=== PATIENT | male | born 1950 | race Caucasian/White ===

== ENCOUNTER → 2017-12-05 07:54 | Outpatient (CLI) | payer OTHER, SELFPAY ==
[2017-12-05 09:39] LABS: AST(SGOT) 28 U/L (15-37); Alanine Aminotransfer ALT/SGPT 36 U/L (16-61); Alkaline Phosphatase 82 U/L (45-117); Bilirubin, Direct 0.15 mg/dL (0.00-0.30); Cholesterol 166 mg/dL (200); Globulin 3.6 g/dL (2.2-4.2); High Density Lipoprotein 38 mg/dL; Protein, Total 7.6 g/dL (6.4-8.2); Triglycerides 167 mg/dL; Very Low Density Lipoprotein 33 mg/dL (5-40)
== END ==
PROVIDERS: Physician Assistant Medical; Family Provider Family Medicine; PCP Family Medicine; Visit Provider Internal Medicine Cardiovascular Disease
DX: E78.5 Hyperlipidemia, unspecified (principal); Z79.899 Other long term (current) drug therapy
CPT/HCPCS: 36415; 80061; 80076

== ENCOUNTER 2021-06-05 06:00 | Outpatient (CLI) | payer MEDICARE, SELFPAY ==
[2021-06-05 07:35] LABS: AST(SGOT) 22 U/L (15-37); Alanine Aminotransfer ALT/SGPT 26 U/L (16-61); Albumin, Serum 3.9 g/dL (3.2-5.0); Alkaline Phosphatase 116 U/L (45-117); Bilirubin, Direct 0.16 mg/dL (0.00-0.30); Cholesterol 172 mg/dL (200); Globulin 3.6 g/dL (2.2-4.2); High Density Lipoprotein 42 mg/dL; Protein, Total 7.5 g/dL (6.4-8.2); Triglycerides 111 mg/dL; Very Low Density Lipoprotein 22 mg/dL (5-40)
== END 2021-06-05 23:59 | disposition short-term general hospital (02) ==
LOC: LAB 06:04
PROVIDERS: PCP Family Medicine; Referring Provider Internal Medicine Cardiovascular Disease; Visit Provider Internal Medicine Cardiovascular Disease
DX: E78.5 Hyperlipidemia, unspecified (principal); I10 Essential (primary) hypertension
CPT/HCPCS: 36415; 80061; 80076

== ENCOUNTER 2021-09-01 10:01 | Emergency (ER) | payer MEDICARE, SELFPAY ==
[2021-09-01] VITALS (7 sets, daily range): BP systolic 121–222; BP diastolic 68–101; PULSE 54–75; RESP 11–18; TEMP 36.4; O2SAT 95–98; BMI 33.7
--- NOTE | 2021-09-01 10:11 | EKG12_ITS ---
Test Reason : CP Blood Pressure : / mmHG Vent. Rate : 078 BPM Atrial Rate : 078 BPM P-R Int : 202 ms QRS Dur : 100 ms QT Int : 404 ms P-R-T Axes : 065 000 -12 degrees QTc Int : 460 ms Sinus rhythm with frequent Premature ventricular complexes Consider precordial lead misplacement Consider repeat ECG Confirmed by RENALDO BARRAGAN, CHEKO ([id number]), editor publications MELVIN LAWRENCE ([id number]) on 09/03/2021 10:52:39 AM Referred By: Confirmed By:CHEKO MACARIO MD
--- NOTE | 2021-09-01 10:31 | EDS_ITS ---
HPI History of Present Illness Chief Complaint: Chest Pain Informant: patient Narrative Narrative: Patient is a 71-year-old male presenting with chest pain. Patient states he has had intermittent episodes of pain by his chst and back then radiating down his whole body. Episodes last for 20 to 30 seconds at a time. He has had a total of 3 episodes of sweaty. He states while he was walking any started feel short of breath. He does have a history of a heart attack 12 years ago and then 7 days later had a TIA but states this feels different. Has been compliant with his medications. Denies any aspirin today. With this for started this morning he was driving and had a hot flash with sweaty. 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) TIA (transient ischemic attack) Home Medications aspirin 81 mg tablet,delayed release 81 mg PO QDAY 04/18/17 [History Last Taken 05/17/17] clopidogrel 75 mg tablet 75 mg PO QDAY #90 tab 09/12/19 [Rx Last Taken Unknown] lisinopril 20 mg tablet 20 mg PO QDAY #90 tab 09/12/19 [Rx Last Taken Unknown] metoprolol tartrate 25 mg tablet 25 mg PO BID #180 tab 09/12/19 [Rx Last Taken Unknown] cyanocobalamin (vitamin B-12) 1,000 mcg capsule 1,000 mcg PO DAILY 02/17/21 [History Last Taken Unknown] ferrous sulfate 325 mg (65 mg iron) tablet 325 mg PO DAILY 02/17/21 [History Last Taken Unknown] sertraline 100 mg tablet 100 mg PO DAILY 02/17/21 [History Last Taken Unknown] atorvastatin [Lipitor] 80 mg PO DAILY 09/01/21 [History Last Taken Unknown] Allergy/AdvReac Type Severity Reaction Status Date / Time No Known Allergies Allergy Verified 09/01/21 10:05 Family History Mother , Age 78, of cancer CAD (coronary artery disease) Cancer Father , Age 59 from [place] CAD (coronary artery disease) age 58 from [place] Myocardial infarction, Onset Age: 59 Sudden cardiac Brother CAD (coronary artery disease) Myocardial infarction, Onset Age: 39 Surgical History H/O right inguinal hernia repair (2017) History of cardiac catheterization (05/18/17) History of coronary artery stent placement History of open reduction and internal fixation (ORIF) procedure History of umbilical hernia repair (2015) Social History Smoking Status: Never smoker alcohol intake: current alcohol intake frequency: holidays/special occasions only ROS ROS ED Constitutional Constitutional ED: Reports sweats; Denies chills or fever(s) Eyes Eyes: Denies blurry vision or change in vision ENT ENT ED: Denies rhinorrhea Cardiovascular Cardiovascular: Reports as per HPI and chest pain Respiratory/Chest Respiratory/Chest: Reports dyspnea; Denies cough Gastrointestinal Gastrointestinal: Reports nausea; Denies abdominal pain or vomiting Genitourinary Genitourinary ED: Denies dysuria Musculoskeletal Musculoskeletal: Denies arthralgias, back pain or myalgias Integumentary Denies rash Neurologic Neurologic: Denies headache(s) or weakness Psychiatric Psychiatric: Denies depression EXAM Physical Exam Const Vital Signs: 09/01/21 10:02 09/01/21 10:06 09/01/21 10:33 Temperature 97.6 F L Temperature Source Temporal Pulse Rate 75 63 Respiratory Rate 16 Respiratory Effort Normal Respiratory Pattern Normal Blood Pressure 222/101 H 199/95 H Blood Pressure Mean 141 Pulse Ox 97 Oxygen Delivery Method Room Air 09/01/21 10:37 09/01/21 11:29 09/01/21 12:00 Temperature Temperature Source Pulse Rate 61 61 Respiratory Rate 18 16 Respiratory Effort Respiratory Pattern Blood Pressure 171/86 H 121/68 H Blood Pressure Mean 114 85 Pulse Ox 97 98 95 Oxygen Delivery Method Room Air Room Air Room Air 09/01/21 13:06 Temperature Temperature Source Pulse Rate 54 L Respiratory Rate 16 Respiratory Effort Respiratory Pattern Blood Pressure 126/78 H Blood Pressure Mean 94 Pulse Ox 96 Oxygen Delivery Method Room Air Positive well nourished and well developed General Appearance ED: well developed HEENT Reports moist mucous membranes normocephalic and atraumatic Eyes PERRL Neck supple and no JVD Chest Wall inspection of chest normal and palpation of chest normal Resp normal respiratory effort and clear to auscultation bilaterally Effort and Inspection: Negative for respiratory distress Cardio regular rate, regular rhythm and no murmurs Peripheral Pulses: radial pulses present and dorsalis pedis pulses present GI normal to inspection, nondistended, normoactive bowel sounds, soft to palpation and non-distended Back/Spine no CVA tenderness Extremity normal to inspection General Extremety ED: Negative for edema or tenderness General Extremity: Negative for edema Neuro oriented x3 Neuro Narrative: No focal deficits appreciated Sensorium / Orientation: awake and alert Psych mental status grossly normal Skin no rashes or lesions noted Heart Score History: Slightly/Non-Suspicious ECG: Nonspecific Repolarization Age: >/= 65 years Risk Factors: >/= 3 Risk Factors or History of CAD Troponin: </= Normal Limit Score: 5 MDM MDM MDM Narrative Medical decision making narrative: Patient is evaluated for an episode of sweating and discomfort in his chest that he states radiate all the way down to his feet. On initial arrival to the ER he was hypertensive with a blood pressure of 222/101. Patient was given aspirin the emergency room and 1 nitroglycerin. His blood pressure dropped to 126/78 without any further intervention. On repeat evaluation patient states he feels completely back to normal. He does comment that he was drinking coffee and about to have a second couple coffee of the day before this happened. He states he drinks about 4 cups of coffee daily. I am not sure if his caffeine intake is associated with his symptoms today. His EKG did not show any acute ischemic changes and his high since he troponin was normal x2. Work-up is largely unremarkable. Chest x-ray interpreted by myself as well as radiology does not show any acute process. Patient counseled that the exact cause of symptoms is not clear however with normalization of his vital signs and resolution of his symptoms I think he is stable for outpatient follow-up. Will follow up with his primary care doctor as well as his rate and cost analyst. He is agreeable this plan of care. Lab Data Attestation: I reviewed the patient's lab results. Labs: Laboratory Results - last 24 hr 09/01/21 09/01/21 09/01/21 10:35 10:35 10:35 WBC 8.9 RBC 5.42 Hgb 14.6 Hct 47.7 MCV 88.0 MCH 26.9 L MCHC 30.6 L RDW Std Deviation 47.5 H RDW Coeff of Mary Anne 14.6 Plt Count 223 MPV 9.5 Immature Gran % (Auto) 0.300 Neut % (Auto) 67.4 Lymph % (Auto) 22.3 Major % (Auto) 8.1 Eos % (Auto) 1.6 Baso % (Auto) 0.3 Absolute Neuts (auto) 6.0 Absolute Lymphs (auto) 1.99 Nucleated RBC % 0 PT Cancelled INR Cancelled Sodium 138 Potassium 4.2 Chloride 108 H Carbon Dioxide 25.0 Anion Gap 5 BUN 17 Creatinine 1.29 Estim Creat Clear Calc 62.84 Est GFR (MDRD) Af Amer 71 Est GFR (MDRD) Non-Af 59 L BUN/Creatinine Ratio 13.2 Glucose 104 Calcium 9.1 Troponin I High Sens B-Natriuretic Peptide 09/01/21 09/01/21 09/01/21 10:35 10:35 11:25 WBC RBC Hgb Hct MCV MCH MCHC RDW Std Deviation RDW Coeff of Mary Anne Plt Count MPV Immature Gran % (Auto) Neut % (Auto) Lymph % (Auto) Major % (Auto) Eos % (Auto) Baso % (Auto) Absolute Neuts (auto) Absolute Lymphs (auto) Nucleated RBC % PT 12.7 INR 1.0 Sodium Potassium Chloride Carbon Dioxide Anion Gap BUN Creatinine Estim Creat Clear Calc Est GFR (MDRD) Af Amer Est GFR (MDRD) Non-Af BUN/Creatinine Ratio Glucose Calcium Troponin I High Sens 8 B-Natriuretic Peptide 51.8 09/01/21 12:51 WBC RBC Hgb Hct MCV MCH MCHC RDW Std Deviation RDW Coeff of Mary Anne Plt Count MPV Immature Gran % (Auto) Neut % (Auto) Lymph % (Auto) Major % (Auto) Eos % (Auto) Baso % (Auto) Absolute Neuts (auto) Absolute Lymphs (auto) Nucleated RBC % PT INR Sodium Potassium Chloride Carbon Dioxide Anion Gap BUN Creatinine Estim Creat Clear Calc Est GFR (MDRD) Af Amer Est GFR (MDRD) Non-Af BUN/Creatinine Ratio Glucose Calcium Troponin I High Sens 10 B-Natriuretic Peptide Radiography Chest X-Ray - ED: 1 View, Read by ED Physician, Read by Radiologist and No Acute Disease Diagnostic Testing: Clinical Impression(s) from Imaging Studies Chest X-Ray 09/01/21 10:45 IMPRESSION: No radiographic evidence of acute cardiopulmonary disease. at 1053 Reported and signed by: Georgia Lang MD Electronically Signed: Georgia Lang MD at 10:52 EDT Reading Location ID and State: [facility] / [place] Tel , Service support , Rhythm Strip Rhythm Strip: Sinus Rhythm Rate: 78 Ectopy: PVC(s) EKG Initial EKG: Attestation: I personally reviewed and interpreted this EKG as follows: Interpretation: Sinus Rhythm Comments: Sinus rhythm with frequent PVCs at a rate of 78 [place] normal 202 QRS 100 QTC [address] segments T wave inversion in lead III and aVf Discharge Plan Triage Chief Complaint: Chest Pain ED Provider: Minerva Overton Dx/Rx/DC Orders Clinical Impression: Chest pain, History of coronary artery stent placement, Essential hypertension Instructions: ED Chest Pain, Uncertain Cause Prescriptions: No Action aspirin 81 mg tablet,delayed release (DR/EC) 81 mg PO QDAY RF: 0 sertraline [Zoloft] 100 mg tablet 100 mg PO DAILY RF: 0 ferrous sulfate 325 mg (65 mg iron) tablet 325 mg PO DAILY RF: 0 cyanocobalamin (vitamin B-12) 1,000 mcg capsule 1,000 mcg PO DAILY RF: 0 atorvastatin [Lipitor] 40 mg tablet 80 mg PO DAILY RF: 0 metoprolol tartrate 25 mg tablet 25 mg PO BID Qty: 180 RF: 3 lisinopril 20 mg tablet 20 mg PO QDAY Qty: 90 RF: 3 clopidogrel [Plavix] 75 mg tablet 75 mg PO QDAY Qty: 90 RF: 3 Primary Care Provider: Carlos Carranza Referrals: Claudy Jaffe MD [STAFF PHYSICIAN] - Carlos Carranza MD [Primary Care Provider] - Disposition Disposition: Home, Self Care
[2021-09-01] MEDS: Nitroglycerin SL (ED/IMG/CATH) 0.4 MG TABLET SL (10:33)
[2021-09-01] MEDS: Aspirin 81 MG TAB.CHEW 324 MG PO (10:33)
[2021-09-01 10:43] LABS: Absolute Lymphocyte Count 1.99 X10^3/uL (0.83-4.51); Basophil# 0.03 X10^3/uL; Basophil% 0.3 % (0-1); Eosinophil# 0.14 X10^3/uL; Eosinophils% 1.6 % (0-5); Hematocrit 47.7 % (40-54); Hemoglobin 14.6 g/dL (13.0-16.5); Lymphocyte # 1.99 X10^3/ul (0.83-4.51); Lymphocyte % 22.3 % (19-41); Mean Corp Hgb Conc 30.6 g/dL (32-36); Mean Corpuscular Hgb 26.9 pg (27.0-32.0); Mean Platelet Vol. 9.5 fl (6.2-12.0); Monocyte# 0.72 X10^3/uL; Monocyte% 8.1 % (0-10); NRBC Flagged by Analyzer 0 % (0-5); Neutrophil # 6.03 X10^3/uL (2.7-7.7); Neutrophil % 67.4 % (47-70); Platelet Count 223 K/mm3 (150-450); RBC Distribution Width CV 14.6 % (11.6-14.6); RBC Distribution Width SD 47.5 fl (35.1-43.9); Red Blood Count 5.42 M/mm3 (4.6-6.2); White Blood Count 8.9 K/mm3 (4.4-11.0)
--- NOTE | 2021-09-01 10:45 | RAD_ITS ---
HISTORY: chest pain. TECHNIQUE: XR Chest 1 View. # of images incl. paperwork: 1. COMPARISON: 05/13/2017. FINDINGS: CARDIOMEDIASTINAL STRUCTURES: Cardiac silhouette not enlarged. Mediastinal contour unchanged with calcification of the aorta. LUNGS: Mild scarring in the left lung base again seen. PLEURA: No pleural effusion or pneumothorax. OSSEOUS STRUCTURES: Hardware in the proximal right humerus. RAD/Chest 1 View (Portable) IMPRESSION: No radiographic evidence of acute cardiopulmonary disease. at 1053 Reported and signed by: Georgia Lang MD Electronically Signed: Georgia Lang MD at 10:52 EDT ,
[2021-09-01 10:56] LABS: Anion Gap 5 (5-15); BUN 17 mg/dL (7-18); BUN/Creat Ratio 13.2 RATIO (10-20); Calcium,Total 9.1 mg/dL (8.5-10.1); Chloride 108 mmol/L (98-107); Creatinine, Serum 1.29 mg/dL (0.70-1.30); EST Glomerular Filtration Rate 59 mL/min (>60); Est Glom Filt Rate - Afr Amer 71 mL/min (>60); Estimated Creatinine Clearance 62.84 ml/min; Glucose 104 mg/dL (74-106); Potassium 4.2 mmol/L (3.5-5.1); Sodium Level 138 mmol/L (136-145)
[2021-09-01 11:02] LABS: Troponin-I HS (w/2H Reflex) 8 pg/mL (3.0-78.0)
[2021-09-01 11:10] LABS: BNP,B-Type NATRIURETIC PEPTIDE 51.8 pg/mL (0-100)
[2021-09-01 11:52] LABS: Prothrombin Time (Protime)PT. 12.7 SECONDS (11.7-14.9)
[2021-09-01 12:39] LABS: Reflex Troponin-HS? (from REC) Y
[2021-09-01 13:27] LABS: Troponin-I HS 10 pg/mL (3.0-78.0)
== END 2021-09-01 14:19 | disposition home or self-care (01) ==
PROVIDERS: Emergency Provider Emergency Medicine; PCP Family Medicine; Visit Provider Emergency Medicine
DX: R07.9 Chest pain, unspecified (principal); I25.10 Atherosclerotic heart disease of native coronary artery without angina pectoris; I12.9 Hypertensive chronic kidney disease with stage 1 through stage 4 chronic kidney disease, or unspecified chronic kidney disease; N18.9 Chronic kidney disease, unspecified; E78.5 Hyperlipidemia, unspecified; Z79.82 Long term (current) use of aspirin; Z79.899 Other long term (current) drug therapy; I25.2 Old myocardial infarction; Z86.73 Personal history of transient ischemic attack (TIA), and cerebral infarction without residual deficits; Z95.5 Presence of coronary angioplasty implant and graft
CPT/HCPCS: 71045; 80048; 83880; 84484; 85025; 85610; 93005; 99285; A4216

== ENCOUNTER → 2021-12-10 | Outpatient (CLI) | payer MEDICARE, SELFPAY ==
--- NOTE | 2021-12-10 12:41 | ECHOD_ITS ---
Reason For Study: MITRAL VALVE INSUFF. Procedure This was a 2D Doppler, Color Flow transthoracic echocardiogram. Exam performed in department. Left Ventricle Normal LV size. Left ventricular systolic function is normal. The estimated ejection fraction is 55 %. No regional wall motion abnormalities noted. Right Ventricle Normal RV size. Normal systolic function. Atria Normal left atrium. Normal right atrium. Mitral Valve Normal mitral valve. Mild (1+) eccentric mitral valve insufficiency. Tricuspid Valve Normal tricuspid valve. Aortic Valve Normal aortic valve. Trisinus/trileaflet aortic valve. Pulmonic Valve Normal pulmonic valve. Great Vessels Normal aortic root. The pulmonary artery is normal size. Normal inferior vena cava. Pericardium/Pleural No pericardial effusion. MMode/2D Measurements & Calculations RVDd: 3.2 cm Ao root diam: 3.2 cm LAV(MOD-bp): 75.4 ml LAV(MOD-bp) Indexed: 30.8 ml/m2 LAV(MOD-sp2): 75.7 ml LAV(MOD-sp4): 75.5 ml SV(MOD-sp4): 57.0 ml LVAd ap4: 28.9 cm2 LVAd ap2: 31.1 cm2 LVLd ap4: 7.7 cm LVLd ap2: 7.6 cm EDV(MOD-sp4): 89.3 ml EDV(MOD-sp2): 103.1 ml EDV(sp4-el): 92.4 ml EDV(sp2-el): 107.7 ml LVAs ap4: 15.2 cm2 LVAs ap2: 18.1 cm2 LVLs ap4: 6.1 cm LVLs ap2: 6.6 cm ESV(MOD-sp4): 32.2 ml ESV(MOD-sp2): 41.5 ml ESV(sp4-el): 32.3 ml ESV(sp2-el): 42.1 ml EF(MOD-sp4): 63.9 % EF(MOD-sp2): 59.7 % EF(sp4-el): 65.1 % SV(MOD-sp2): 61.6 ml SV(sp4-el): 60.1 ml LA A4 area: 22.5 cm2 LA dimension(2D): 4.9 cm RA A4 area: 19.6 cm2 Time Measurements MV dec time: 0.25 sec Doppler Measurements & Calculations MV E max zev: 100.3 cm/sec Lat Peak E' Zev: 13.1 cm/sec Med Peak E' Zev: 7.2 cm/sec MV A max zev: 46.0 cm/sec E/E' lat: 7.7 E/E' med: 14.0 MV E/A: 2.2 MV V2 max: 101.3 cm/sec MV dec slope: 407.3 cm/sec2 Ao V2 max: 132.7 cm/sec MV max P.1 mmHg Ao max P.1 mmHg MV V2 mean: 46.9 cm/sec Ao V2 mean: 90.9 cm/sec MV mean P.1 mmHg Ao mean P.8 mmHg MV V2 VTI: 34.3 cm Ao V2 VTI: 30.6 cm LV V1 max: 119.5 cm/sec PA V2 max: 128.7 cm/sec LV V1 max P.7 mmHg LV V1 mean P.2 mmHg LV V1 mean: 84.2 cm/sec LV V1 VTI: 26.1 cm ECHO/Echo Complete Interpretation Summary Normal LV size. Left ventricular systolic function is normal. The estimated ejection fraction is 55 %. Mild (1+) eccentric mitral valve insufficiency. Ordering Physician: Marina Coronel Referring Physician: Marina Coronel Performed By: Bella Mueller RCS
== END | disposition home or self-care (01) ==
PROVIDERS: PCP Family Medicine; Referring Provider Nurse Practitioner Gerontology; Visit Provider Nurse Practitioner Gerontology
DX: I34.0 Nonrheumatic mitral (valve) insufficiency (principal); I10 Essential (primary) hypertension
CPT/HCPCS: 93306

== ENCOUNTER → 2022-03-19 | Outpatient (CLI) | payer MEDICARE, SELFPAY ==
[2022-03-19 08:24] LABS: AST(SGOT) 19 U/L (15-37); Alanine Aminotransfer ALT/SGPT 22 U/L (16-61); Albumin, Serum 3.8 g/dL (3.2-5.0); Alkaline Phosphatase 107 U/L (45-117); Bilirubin, Direct 0.14 mg/dL (0.00-0.30); Cholesterol 139 mg/dL (200); Globulin 3.1 g/dL (2.2-4.2); High Density Lipoprotein 43 mg/dL; Protein, Total 6.9 g/dL (6.4-8.2); Triglycerides 95 mg/dL; Very Low Density Lipoprotein 19 mg/dL (5-40)
== END | disposition home or self-care (01) ==
LOC: LAB 05:54
PROVIDERS: PCP Family Medicine; Referring Provider Internal Medicine Cardiovascular Disease; Visit Provider Internal Medicine Cardiovascular Disease
DX: E78.00 Pure hypercholesterolemia, unspecified (principal)
CPT/HCPCS: 36415; 80061; 80076

== ENCOUNTER → 2024-04-30 | Outpatient (CLI) | payer MEDICARE, SELFPAY ==
--- NOTE | 2024-04-30 11:23 | STRESSREP ---
Stress Test Report Pharmacologic myocardial perfusion stress test. 73-year-old man with chest pain Resting EKG demonstrates sinus bradycardia with a rate of 52 bpm. Resting blood pressure is 170/84 mmHg. 0.4 mg of regadenoson was infused per usual protocol followed by rapid intravenous saline flush injection. Continuous EKG monitoring was performed. The maximum heart rate was 67 bpm which was 44% of max impacted heart rate the maximum workload was 1 metabolic equivalent. At rest there were no ST or T wave changes noted to suggest ischemia and at peak infusion nonspecific ST changes were noted which did not meet the criteria for ischemia. No clinical angina is noted. The final blood pressure was 148/80 mmHg. Myocardial perfusion protocol. 15 mCi of technetium 99m sestamibi was injected at rest. 0.4 mg of regadenoson was infused per usual protocol. At peak infusion 45 mCi of technetium 99m sestamibi was injected stress images were obtained stress and rest images were reconstructed and compared in the short axis vertical long and horizontal long axis. Gated images were also obtained. Perfusion SPECT analysis: Review of the stress images demonstrate normal uptake of tracer noted in all areas of the myocardium. The resting images similar demonstrated normal uptake of tracer noted in all areas of the myocardium. No areas of reversibility are noted to suggest ischemia and no previous infarct is noted. Gated SPECT analysis: The gated ejection fraction is 67%. Conclusion: Normal pharmacologic myocardial perfusion stress test. Preserved ejection fraction.
== END | disposition home or self-care (01) ==
LOC: CVS 06:42
PROVIDERS: PCP Family Medicine; Referring Provider Nurse Practitioner Family; Visit Provider Nurse Practitioner Family
DX: Z95.5 Presence of coronary angioplasty implant and graft (principal); I10 Essential (primary) hypertension; E78.5 Hyperlipidemia, unspecified; R07.9 Chest pain, unspecified
CPT/HCPCS: 78452; 93017; A9500; A4216; J2785